=== PATIENT | male | born 1985 | race Hispanic/Latino ===

== ENCOUNTER 2020-09-25 11:26 | Inpatient (IN) | payer OTHER ==
[~2020-09-25] VITALS: Ht 170.2 cm; Wt 120.3 kg
[2020-09-25] MEDS: FAMOTIDINE 20MG VIAL IV SCH (09:00)
[2020-09-25 11:29] VITALS: BP 161/98
[2020-09-25] MEDS ORDERED: ONDANSETRON 4MG INJ IVP SCH (12:00)
[2020-09-25 12:17] LABS: BASOPHILS % (AUTO) 0.4 % (0.0-5.0); EOSINOPHILS % (AUTO) 0.1 % (0.0-8.0); HEMATOCRIT 49.7 % (42-54); LYMPHOCYTES % (AUTO) 11.1 % (21.0-51.0); MEAN CORPUSCULAR HEMOGLOBIN 29.8 pg (27.0-33.0); MEAN CORPUSCULAR HGB CONC 33.6 g/dL (32.0-36.0); MEAN CORPUSCULAR VOLUME 88.8 fL (79-99); MONOCYTES % (AUTO) 7.3 % (3.0-13.0); NEUTROPHILS % (AUTO) 79.9 % (40.0-77.0); PLATELET COUNT (AUTO) 263 K/uL (130-400); RED CELL DISTRIBUTION WIDTH 13.7 % (11.0-15.5); WHITE BLOOD COUNT (AUTO) 8.9 K/uL (4.8-10.8)
[2020-09-25 12:18] LABS: APPEARANCE,URINE Clear (CLEAR); BILIRUBIN,URINE Negative (NEGATIVE); COLOR,URINE Yellow (YELLOW); GLUCOSE, URINE (UA) >=1000 mg/dL (NEGATIVE); KETONES,URINE >=160 mg/dL (NEGATIVE); LEUKOCYTE ESTERASE ,URINE Negative (NEGATIVE); NITRATE,URINE Negative (NEGATIVE); OCCULT BLOOD,URINE Moderate (NEGATIVE); PROTEIN,URINE 300 mg/dL (NEGATIVE)
[2020-09-25 12:31] LABS: ALBUMIN 4.5 g/dL (3.5-5.0); BILIRUBIN,TOTAL 0.6 mg/dL (0.2-1.0); CREATININE 1.2 mg/dL (0.5-1.5); POTASSIUM 3.8 mmol/L (3.5-5.1); TOTAL PROTEIN, SERUM 9.4 g/dL (6.0-8.3)
[2020-09-25 12:47] LABS: BACTERIA,URINE Rare /HPF (None Seen); RBC,URINE 0-1 /HPF (0-1); WBC,URINE 0-1 /HPF (0-1)
[2020-09-25 12:48] LABS: HYALINE CASTS, URINE 0-1 /LPF (0-1 /LPF); SQUAMOUS EPITHELIAL CELL,UR Few /HPF (0-2)
[2020-09-25] MEDS ORDERED: INSULIN HUMULIN R 100 UNIT/ML 3ML IV SCH (13:00)
[2020-09-25] MEDS: 0.9%NACL 1000ML 1,000 ML IV SCH ×5 (13:17→19:56)
[2020-09-25 13:18] LABS: ABG BASE EXCESS -21.6 mmol/L (-2.0-3.0); ABG HCO3 5.1 mmol/L (21.0-28.0); ABG OXYGEN SATURATION 97.5 % (95.0-99.0); ABG PCO2 16 mmHg (35-48)
[2020-09-25] MEDS ORDERED: SODIUM BICARB 50MEQ 50ML VIAL IV STA (13:26)
[2020-09-25] MEDS ORDERED: ONDANSETRON 4MG INJ IV PRN (14:00)
[2020-09-25] MEDS ORDERED: MORPHINE 2 MG SYG IV PRN (14:00)
[2020-09-25] MEDS ORDERED: LACTULOSE 20 GM/30 ML UDCUP PO PRN (14:00)
[2020-09-25] MEDS ORDERED: DEXTROSE 5 %-0.45 % NACL 1,000 ML IV PRN (14:00)
[2020-09-25] MEDS ORDERED: POTASSIUM CHLORIDE 10MEQ/100ML 100 ML IV PRN (14:00)
[2020-09-25] MEDS ORDERED: ACETAMINOPHEN 325 MG TAB PO PRN ×2 (14:00)
[2020-09-25] MEDS ORDERED: IPRATROPIUM 0.5 MG/2.5 ML INH IH PRN (14:30)
[2020-09-25] MEDS ORDERED: SODIUM BICARB 8.4% 50ML SYRING 0 MEQ in DEXTROSE 5%-WATER 1,000 ML IVP SCH (14:30)
[2020-09-25 14:51] LABS: AMPHET/METH SCREEN,URINE NEGATIVE (NEGATIVE); BARBITURATE SCREEN, URINE NEGATIVE (NEGATIVE); BENZODIAZEPINES SCREEN,URINE POSITIVE (NEGATIVE); CANNABINOID SCREEN,URINE POSITIVE (NEGATIVE); COCAINE SCREEN,URINE POSITIVE (NEGATIVE); OPIATE SCREEN,URINE NEGATIVE (NEGATIVE); PHENCYCLIDINE SCREEN,URINE NEGATIVE (NEGATIVE)
[2020-09-25 14:53] LABS: INR 0.99 (0.85-1.15); PROTHROMBIN TIME 10.8 SEC (9.6-11.6)
[2020-09-25 14:55] LABS: PARTIAL THROMBOPLASTIN TIME 27.6 SEC (26.3-35.5)
[2020-09-25] MEDS ORDERED: SODIUM BICARB 50MEQ 50ML VIAL 50 ML ONE (14:55)
[2020-09-25] MEDS ORDERED: 0.9%NACL 100ML 100 ML ONE (14:55)
[2020-09-25 14:57] LABS: HEMOGLOBIN A1C 10.7 % (4.0-6.0)
[2020-09-25] MEDS ORDERED: INSULIN HUMULIN R 100 UNIT/ML 3ML ONE (14:57)
[2020-09-25] MEDS ORDERED: HYDRALAZINE 20MG/ML VIAL IV PRN (15:00)
[2020-09-25 15:31] VITALS: BP 144/76
[2020-09-25] MEDS: CEFTRIAXONE 1G VIAL IVP SCH (15:36)
[2020-09-25 15:54] LABS: THYROID STIMULATING HORMONE 0.26 uIU/mL (0.36-3.74)
[2020-09-25] MEDS: INSULIN REGULAR, HUMAN 3ML 100 UNIT in 0.9%NACL 100ML 99 ML IV PRN ×6 (16:34→18:24)
[2020-09-25 18:14] LABS: CREATININE 1.1 mg/dL (0.5-1.5)
[2020-09-25 18:36] VITALS: BP 155/82
[2020-09-25 19:31] LABS: ABG BASE EXCESS -21.5 mmol/L (-2.0-3.0); ABG HCO3 5.4 mmol/L (21.0-28.0); ABG OXYGEN SATURATION 98.2 % (95.0-99.0); ABG PCO2 17 mmHg (35-48)
[2020-09-25 19:37] LABS: ABG BASE EXCESS -22.1 mmol/L (-2.0-3.0); ABG HCO3 4.9 mmol/L (21.0-28.0); ABG OXYGEN SATURATION 98.5 % (95.0-99.0); ABG PCO2 15 mmHg (35-48)
[2020-09-26] VITALS (10 sets, daily range): BP systolic 124–166; BP diastolic 62–86
[2020-09-26 02:01] LABS: CREATININE 1.1 mg/dL (0.5-1.5); POTASSIUM 3.5 mmol/L (3.5-5.1)
[2020-09-26] MEDS: 0.9%NACL 1000ML 1,000 ML IV SCH ×5 (05:00→13:23)
[2020-09-26 07:25] LABS: BASOPHILS % (AUTO) 0.3 % (0.0-5.0); EOSINOPHILS % (AUTO) 0.2 % (0.0-8.0); HEMATOCRIT 41.7 % (42-54); LYMPHOCYTES % (AUTO) 20.6 % (21.0-51.0); MEAN CORPUSCULAR HEMOGLOBIN 29.8 pg (27.0-33.0); MEAN CORPUSCULAR HGB CONC 32.9 g/dL (32.0-36.0); MEAN CORPUSCULAR VOLUME 90.8 fL (79-99); MONOCYTES % (AUTO) 9.7 % (3.0-13.0); NEUTROPHILS % (AUTO) 67.3 % (40.0-77.0); PLATELET COUNT (AUTO) 197 K/uL (130-400); RED BLOOD CELL COUNT(AUTO) 4.59 MIL/uL (4.50-6.20); RED CELL DISTRIBUTION WIDTH 14.3 % (11.0-15.5); WHITE BLOOD COUNT (AUTO) 6.3 K/uL (4.8-10.8)
[2020-09-26 07:41] LABS: CREATININE 0.9 mg/dL (0.5-1.5); POTASSIUM 3.3 mmol/L (3.5-5.1)
[2020-09-26] MEDS: INSULIN REGULAR, HUMAN 3ML 100 UNIT in 0.9%NACL 100ML 99 ML IV PRN ×16 (07:52→17:23)
[2020-09-26] MEDS: ENOXAPARIN SODIUM 40 MG/0.4 ML SYRINGE SQ SCH (09:25)
[2020-09-26] MEDS: FAMOTIDINE 20MG VIAL IV SCH ×2 (09:57→20:53)
[2020-09-26] MEDS: D5W-1/2 NS/20MEQ KCL 1,000 ML IV SCH ×2 (09:59→15:55)
[2020-09-26 11:02] LABS: ABG BASE EXCESS -22.1 mmol/L (-2.0-3.0); ABG HCO3 4.3 mmol/L (21.0-28.0); ABG OXYGEN SATURATION 98.3 % (95.0-99.0); ABG PCO2 < 14 mmHg (35-48)
[2020-09-26 12:47] LABS: POTASSIUM 2.5 mmol/L (3.5-5.1)
[2020-09-26] MEDS ORDERED: ONDANSETRON 4MG INJ ONE (12:47)
[2020-09-26] MEDS ORDERED: MORPHINE 2 MG SYG ONE (12:48)
[2020-09-26] MEDS ORDERED: POTASSIUM CHLORIDE 20MEQ/100ML 200 ML IV ONE (12:52)
[2020-09-26] MEDS ORDERED: POTASSIUM CHLORIDE 10% ELIXIR 20 MEQ/15 ML UDCUP ONE (13:06)
[2020-09-26] MEDS: SODIUM BICARB 8.4% 50ML SYRING 150 MEQ in DEXTROSE 5%-WATER 1,000 ML IVP SCH (13:21)
[2020-09-26] MEDS: CEFTRIAXONE 1G VIAL IVP SCH (15:55)
[2020-09-26] MEDS ORDERED: DEXTROSE 50%-WATER 50 ML DISP.SYRIN IV PRN (18:30)
[2020-09-26] MEDS ORDERED: [UNRECOGNIZED DRUG - REMARK] MISC ONE (18:30)
[2020-09-26] MEDS ORDERED: GLUCAGON 1MG KIT 1 MG ML IM PRN (18:30)
[2020-09-26] MEDS ORDERED: INSULIN DRIP 1 UNIT/ML SSIV3 IV PRN ×2 (19:30)
[2020-09-26] MEDS: POTASSIUM CHLORIDE 20MEQ/10ML 20 MEQ in DEXTROSE 5%-LACTATED RINGERS 1,000 ML IV SCH (19:48)
[2020-09-26] MEDS: POTASSIUM CHLORIDE 10% ELIXIR 20 MEQ/15 ML UDCUP PO PRN (21:58)
[2020-09-26] MEDS: KCL 20 MEQ ERTAB PO PRN (21:59)
[2020-09-26] MEDS ORDERED: LIDOCAINE HCL-MPF 1% 2ML VIAL IV PRN (22:00)
[2020-09-26 22:14] LABS: CREATININE 0.9 mg/dL (0.5-1.5)
[2020-09-26 22:16] LABS: POTASSIUM 2.6 mmol/L (3.5-5.1)
[2020-09-26] MEDS ORDERED: POTASSIUM CHLORIDE 20MEQ/100ML 100 ML IV ONE (22:48)
[2020-09-27] VITALS (22 sets, daily range): BP systolic 142–169; BP diastolic 63–95
[2020-09-27] MEDS ORDERED: DEXTROSE 5%-WATER 1,000 ML IV ONE (01:12)
[2020-09-27] MEDS ORDERED: SODIUM BICARB 50MEQ 50ML VIAL 150 ML ONE (01:12)
[2020-09-27] MEDS: KCL 20 MEQ ERTAB PO PRN ×7 (01:32→20:32)
[2020-09-27 02:18] LABS: HEMATOCRIT 38.7 % (42-54); MEAN CORPUSCULAR HEMOGLOBIN 30.1 pg (27.0-33.0); MEAN CORPUSCULAR HGB CONC 34.9 g/dL (32.0-36.0); MEAN CORPUSCULAR VOLUME 86.4 fL (79-99); RED BLOOD CELL COUNT(AUTO) 4.48 MIL/uL (4.50-6.20); RED CELL DISTRIBUTION WIDTH 14.1 % (11.0-15.5); WHITE BLOOD COUNT (AUTO) 8.3 K/uL (4.8-10.8)
[2020-09-27 02:39] LABS: ALBUMIN 3.5 g/dL (3.5-5.0); BILIRUBIN,TOTAL 0.4 mg/dL (0.2-1.0); CREATININE 0.9 mg/dL (0.5-1.5); MAGNESIUM 2.1 mg/dL (1.80-2.40); PHOSPHORUS 0.6 mg/dL (2.5-4.9)
[2020-09-27 02:48] LABS: POTASSIUM 2.7 mmol/L (3.5-5.1)
[2020-09-27] MEDS: POTASSIUM CHLORIDE 20MEQ/100ML 100 ML IV PRN ×3 (02:54→12:25)
[2020-09-27] MEDS: LIDOCAINE HCL-MPF 1% 2ML VIAL IV PRN (02:54)
[2020-09-27] MEDS ORDERED: LIDOCAINE HCL-MPF 1% 2ML VIAL IV PRN (03:00)
[2020-09-27] MEDS ORDERED: POTASSIUM CHLORIDE 10MEQ/100ML 100 ML IV PRN (03:00)
[2020-09-27] MEDS: POTASSIUM CHLORIDE 10% ELIXIR 20 MEQ/15 ML UDCUP PO PRN ×3 (03:14→09:09)
[2020-09-27] MEDS: POTASSIUM CHLORIDE 20MEQ/10ML 20 MEQ in DEXTROSE 5%-LACTATED RINGERS 1,000 ML IV SCH (04:04)
[2020-09-27] MEDS: SODIUM BICARB 8.4% 50ML SYRING 150 MEQ in DEXTROSE 5%-WATER 1,000 ML IVP SCH ×2 (04:48→12:19)
[2020-09-27 06:50] LABS: ABG HCO3 15.7 mmol/L (21.0-28.0); ABG OXYGEN SATURATION 98.4 % (95.0-99.0); ABG PCO2 28 mmHg (35-48)
[2020-09-27 07:23] LABS: ABG BASE EXCESS -18.6 mmol/L (-2.0-3.0); ABG HCO3 7.1 mmol/L (21.0-28.0); ABG OXYGEN SATURATION 98.5 % (95.0-99.0); ABG PCO2 19 mmHg (35-48)
[2020-09-27 08:22] LABS: CREATININE 0.8 mg/dL (0.5-1.5)
[2020-09-27 08:39] LABS: POTASSIUM 2.8 mmol/L (3.5-5.1)
[2020-09-27] MEDS: FAMOTIDINE 20MG VIAL IV SCH ×2 (09:08→20:32)
[2020-09-27] MEDS: ENOXAPARIN SODIUM 40 MG/0.4 ML SYRINGE SQ SCH (09:10)
[2020-09-27] MEDS: POTASSIUM CHLORIDE 20MEQ/10ML 40 MEQ in DEXTROSE 5%-LACTATED RINGERS 1,000 ML IV SCH ×2 (12:25→17:54)
[2020-09-27] MEDS: CEFTRIAXONE 1G VIAL IVP SCH (14:03)
[2020-09-27 14:56] LABS: CREATININE 0.8 mg/dL (0.5-1.5); POTASSIUM 3.3 mmol/L (3.5-5.1)
[2020-09-27] MEDS: INSULIN HUMULIN R 100 UNIT/ML 3ML SQ SCH (20:00)
[2020-09-27] MEDS: INSULIN GLARGINE 100 UNITS/ML 10 ML VIAL SQ SCH (20:34)
[2020-09-28] VITALS (12 sets, daily range): BP systolic 136–180; BP diastolic 74–108
[2020-09-28] MEDS: KCL 20 MEQ ERTAB PO PRN ×7 (00:08→20:41)
[2020-09-28] MEDS: INSULIN HUMULIN R 100 UNIT/ML 3ML SQ SCH ×8 (00:10→20:49)
[2020-09-28 04:27] LABS: CREATININE 0.7 mg/dL (0.5-1.5)
[2020-09-28 04:35] LABS: POTASSIUM 2.9 mmol/L (3.5-5.1)
[2020-09-28] MEDS: FAMOTIDINE 20MG VIAL IV SCH ×2 (08:21→20:40)
[2020-09-28] MEDS: SODIUM BICARB 8.4% 50ML SYRING 150 MEQ in DEXTROSE 5%-WATER 1,000 ML IVP SCH (08:22)
[2020-09-28] MEDS: ENOXAPARIN SODIUM 40 MG/0.4 ML SYRINGE SQ SCH (08:22)
[2020-09-28] MEDS: POTASSIUM CHLORIDE 20MEQ/100ML 100 ML IV PRN (11:03)
[2020-09-28] MEDS: LIDOCAINE HCL-MPF 1% 2ML VIAL IV PRN (11:04)
[2020-09-28] MEDS: CEFTRIAXONE 1G VIAL IVP SCH (14:25)
[2020-09-28] MEDS ORDERED: INSULIN GLARGINE 100 UNITS/ML 10 ML VIAL SQ SCH (17:00)
[2020-09-28] MEDS: INSULIN GLARGINE 100 UNITS/ML 10 ML VIAL SQ SCH (20:49)
[2020-09-29 04:35] VITALS: BP 129/92
[2020-09-29] MEDS: INSULIN HUMULIN R 100 UNIT/ML 3ML SQ SCH ×6 (06:15→16:31)
[2020-09-29] MEDS: KCL 20 MEQ ERTAB PO PRN ×4 (06:18→14:55)
[2020-09-29 07:00] VITALS: BP 154/95
[2020-09-29] MEDS: FAMOTIDINE 20MG VIAL IV SCH (08:36)
[2020-09-29] MEDS: ENOXAPARIN SODIUM 40 MG/0.4 ML SYRINGE SQ SCH (08:37)
[2020-09-29] MEDS ORDERED: ATORVASTATIN 40 MG TABLET PO SCH (09:00)
[2020-09-29] MEDS: CEFTRIAXONE 1G VIAL IVP SCH (14:54)
[2020-09-29 15:00] VITALS: BP 154/102
== END 2020-09-29 16:29 | disposition home or self-care (01) | DRG 871 ==
LOC: EDH 11:26 → EDHIP 11:27 → 2DH 09-26 21:43 → 3AH 09-28 14:59
PROVIDERS: ADMIT Internal Medicine; ATTEND Internal Medicine
DX: A41.9 Sepsis, unspecified organism (principal); E11.10 Type 2 diabetes mellitus with ketoacidosis without coma; J96.00 Acute respiratory failure, unspecified whether with hypoxia or hypercapnia; Z68.41 Body mass index [BMI] 40.0-44.9, adult; E86.1 Hypovolemia; E78.2 Mixed hyperlipidemia; K76.0 Fatty (change of) liver, not elsewhere classified; E66.01 Morbid (severe) obesity due to excess calories; I10 Essential (primary) hypertension; F12.10 Cannabis abuse, uncomplicated; F14.10 Cocaine abuse, uncomplicated; E87.6 Hypokalemia; E83.39 Other disorders of phosphorus metabolism; F17.210 Nicotine dependence, cigarettes, uncomplicated; Z86.16 Personal history of COVID-19
CPT/HCPCS: 36415; 36600; 71045; 76705; 80048; 80053; 80061; 80305; 81001; 82010; 82150; 82435; 82803; 82947; 82948; 83036; 83605; 83690; 83735; 84100; 84132; 84145; 84295; 84443; 85018; 85025; 85027; 85378; 85610; 85730; 87040; 87088; 87635; 94664; G0378; J0696; J1650; J1815; J2405; J3480; J3490; J7030; J7070